=== PATIENT | male | born 1950 | race Caucasian/White ===

== ENCOUNTER → 2017-10-30 | Outpatient (CLI) | payer MEDICARE, OTHER ==
[~2017-10-30] MED LIST: ASPI81EC; ATOR10
== END | disposition home or self-care (01) ==
LOC: PLD 10:14 → LAB SHORT 10:14
DX: L82.1 Other seborrheic keratosis (principal)
CPT/HCPCS: 88305

== ENCOUNTER → 2019-05-03 | Outpatient (CLI) | payer MEDICARE, OTHER ==
[2019-05-03 09:37] LABS: Source, Urine Clean Catch
[2019-05-03 13:51] LABS: Bilirubin, Urine Neg (Neg); Blood, Urine 2+ (Neg); Glucose Qualitative, Urine 3+ (Neg); Ketones, Urine 1+ (Neg); Leukocyte Esterase, Urine Neg (Neg); Nitrite, Urine Neg (Neg); Protein, Urine Neg (Neg); Specific Gravity, Urine 1.025 (1.003-1.022); Urobilinogen, Urine NORM (Normal)
[2019-05-03 14:22] LABS: Appearance, Urine Cloudy (Clear); Color, Urine Yellow (P-Yellow)
[2019-05-03 14:23] LABS: Amorphous Heavy (0-Heavy)
[2019-05-03 14:25] LABS: Bacteria Few /hpf; Squamous Epithelial Cells Not Seen /hpf (Few)
== END | disposition home or self-care (01) ==
LOC: LAB SHORT 09:36 → LAB 09:36
PROVIDERS: Internal Medicine
DX: N45.3 Epididymo-orchitis (principal)
CPT/HCPCS: 81001

== ENCOUNTER → 2019-05-17 | Outpatient (CLI) | payer MEDICARE, OTHER ==
[2019-05-17 08:35] LABS: Source, Urine Clean Catch
[2019-05-17 09:30] LABS: Bilirubin, Urine Neg (Neg); Blood, Urine Neg (Neg); Glucose Qualitative, Urine 3+ (Neg); Ketones, Urine Neg (Neg); Leukocyte Esterase, Urine Neg (Neg); Nitrite, Urine Neg (Neg); Protein, Urine 1+ (Neg); Urobilinogen, Urine NORM (Normal)
[2019-05-17 09:31] LABS: Appearance, Urine Clear (Clear); Color, Urine Yellow (P-Yellow)
== END ==
LOC: LAB 08:32 → LAB SHORT 08:32
PROVIDERS: Internal Medicine
DX: R31.29 Other microscopic hematuria (principal)
CPT/HCPCS: 88108

== ENCOUNTER → 2020-03-11 | Outpatient (CLI) | payer MEDICARE, OTHER ==
[~2020-03-11] MED LIST changes: +ATOR20 PO; +Aspir 8181 MG PO; +DEXL60CA3 PO; +GLIM2 PO; +GLUCOPHAGE1000 M2 PO; +TURMERIC500 M2; +Vitamin D2000 UNIT
== END | disposition home or self-care (01) ==
LOC: LAB 11:22 → LAB SHORT 11:22
DX: B07.8 Other viral warts (principal)
CPT/HCPCS: 88305

== ENCOUNTER 2020-03-13 13:18 | Day surgery (SDC) | payer MEDICARE, OTHER ==
[~2020-03-13] VITALS: Ht 182.9 cm; Wt 95.7 kg
[~2020-03-13 13:18] MED LIST changes: -TURMERIC500 M2; -Vitamin D2000 UNIT
[2020-03-13] MEDS ORDERED: Vitamin D2000 UNIT (13:58)
[2020-03-13] MEDS ORDERED: TURMERIC500 M2 (13:59)
== END 2020-03-13 14:59 | disposition home or self-care (01) ==
LOC: ORSCSDS 13:18
PROVIDERS: Anesthesiology
PROC: 3E0R33Z Introduction of Anti-inflammatory into Spinal Canal, Percutaneous Approach (ICD-10-PCS; principal; 2020-03-13 14:30)
DX: M51.16 Intervertebral disc disorders with radiculopathy, lumbar region (principal); E11.9 Type 2 diabetes mellitus without complications; E78.00 Pure hypercholesterolemia, unspecified; I10 Essential (primary) hypertension; Z79.899 Other long term (current) drug therapy; Z79.84 Long term (current) use of oral hypoglycemic drugs; Z79.82 Long term (current) use of aspirin
CPT/HCPCS: 82947; J1040

== ENCOUNTER 2021-01-13 14:57 | Day surgery (SDC) | payer MEDICARE, OTHER ==
[~2021-01-13] VITALS: Ht 182.9 cm; Wt 83.1 kg
[~2021-01-13 14:57] MED LIST changes: +TURMERIC500 M2; +Vitamin D2000 UNIT
== END 2021-01-13 16:10 | disposition home or self-care (01) ==
LOC: ORSCSDS 14:57
PROVIDERS: Anesthesiology
PROC: 3E0R33Z Introduction of Anti-inflammatory into Spinal Canal, Percutaneous Approach (ICD-10-PCS; principal; 2021-01-13 16:00)
DX: M51.16 Intervertebral disc disorders with radiculopathy, lumbar region (principal); M54.59 Other low back pain; I10 Essential (primary) hypertension; E11.9 Type 2 diabetes mellitus without complications; E78.00 Pure hypercholesterolemia, unspecified; Z79.84 Long term (current) use of oral hypoglycemic drugs; Z79.82 Long term (current) use of aspirin; Z79.899 Other long term (current) drug therapy
CPT/HCPCS: J1040

== ENCOUNTER 2021-09-15 13:12 | Day surgery (SDC) | payer MEDICARE ==
[~2021-09-15] VITALS: Ht 182.9 cm; Wt 96.2 kg
== END 2021-09-15 14:40 | disposition home or self-care (01) ==
LOC: ORSCSDS 13:12
PROVIDERS: Anesthesiology
PROC: 3E0R33Z Introduction of Anti-inflammatory into Spinal Canal, Percutaneous Approach (ICD-10-PCS; principal; 2021-09-15 14:30)
DX: M51.16 Intervertebral disc disorders with radiculopathy, lumbar region (principal); I10 Essential (primary) hypertension; E11.8 Type 2 diabetes mellitus with unspecified complications; E78.00 Pure hypercholesterolemia, unspecified; M54.50 Low back pain, unspecified; Z79.899 Other long term (current) drug therapy
CPT/HCPCS: 82947; J1040

== ENCOUNTER 2023-04-10 10:16 | Emergency (ER) | payer MEDICARE ==
[~2023-04-10] VITALS: Ht 182.9 cm; Wt 90.7 kg
[2023-04-10 11:31] LABS: BASOPHILS ABSOLUTE AUTO 0.02 K/mm3 (0.00-0.23); BASOPHILS PERCENT AUTO 0 % (0-2); EOSINOPHILS PERCENT AUTO 0 % (0-6); Hematocrit 45.6 % (37.0-53.0); Hemoglobin 15.5 g/dL (13.5-17.5); IMMATURE GRAN ABSOLUTE AUTO 0.05 K/mm3 (0.00-0.10); IMMATURE GRAN PERCENT AUTO 0 % (0-1); LYMPHOCYTES ABSOLUTE AUTO 1.19 K/mm3 (0.84-5.20); LYMPHOCYTES PERCENT AUTO 9 % (21-46); MONOCYTES ABSOLUTE AUTO 0.45 K/mm3 (0.16-1.47); MONOCYTES PERCENT AUTO 3 % (4-13); Mean Corpuscular HGB 29.1 pg (26.0-34.0); Mean Corpuscular Volume 86 fL (80-100); Mean Platelet Volume 9.2 fL (9.1-12.4); NEUTROPHILS ABSOLUTE AUTO 11.37 K/mm3 (1.96-9.15); NEUTROPHILS PERCENT AUTO 87 % (41-73); Platelet Count 215 K/mm3 (150-400); RDW Coefficient Variation 12.3 % (11.7-14.2); RDW Standard Deviation 38.5 fL (35.1-46.3); Red Blood Cell Count 5.33 M/mm3 (4.30-5.90); White Blood Cell Count 13.08 K/mm3 (4.00-11.30)
[2023-04-10 11:54] LABS: Albumin, Blood 3.6 g/dL (3.4-5.0); Albumin/Globulin Ratio 1.1 (0.8-1.8); Bilirubin, Total 0.7 mg/dL (0.1-1.0); Bun/Creatinine Ratio 19.6 (12.0-20.0); Calcium, Blood 8.4 mg/dL (8.5-10.1); Creatinine, Blood 0.92 mg/dL (0.60-1.20); Globulin, Blood 3.2 g/dL (2.2-4.0); Potassium, Blood 4.3 mmol/L (3.5-5.5); Total Protein, Blood 6.8 g/dL (6.4-8.2)
[2023-04-10 12:22] LABS: Source, Urine Clean Catch
[2023-04-10 12:25] LABS: Bilirubin, Urine Neg (Neg); Blood, Urine 5+ (Neg); Color, Urine Yellow (P-Yellow); Glucose Qualitative, Urine 2+ (Neg); Ketones, Urine 1+ (Neg); Leukocyte Esterase, Urine Neg (Neg); Nitrite, Urine Neg (Neg); Protein, Urine 2+ (Neg); Urobilinogen, Urine NORM (Normal)
[2023-04-10 12:30] VITALS: BP 124/81
[2023-04-10 12:33] LABS: Appearance, Urine Hazy (Clear)
[2023-04-10 12:34] LABS: Bacteria Rare /hpf; Red Blood Cells, Urine 50-100 /hpf (0-2); Squamous Epithelial Cells Rare /hpf (Few); White Blood Cells, Urine 0-2 /hpf (0-5)
[2023-04-10] MEDS ORDERED: HYDACE10B PO (12:49)
[2023-04-10] MEDS ORDERED: Zofran4 MG PO (12:49)
== END 2023-04-10 12:58 | disposition home or self-care (01) ==
LOC: ER 10:16
PROVIDERS: Student in an Organized Health Care Education/Training Program
DX: N13.2 Hydronephrosis with renal and ureteral calculous obstruction (principal); E78.00 Pure hypercholesterolemia, unspecified; Z87.442 Personal history of urinary calculi; Z79.84 Long term (current) use of oral hypoglycemic drugs; Z79.899 Other long term (current) drug therapy
CPT/HCPCS: 74177; 80053; 81001; 84484; 85025; 93005; 93010; 96374-59; 99284-25; J1885; Q9967